=== PATIENT | female | born 1990 | race Caucasian/White ===

== ENCOUNTER → 2020-07-10 | Outpatient (CLI) | payer OTHER ==
[~2020-07-10] MED LIST: ASPIRIN CHEWABL81 MG PO; BENADRYL25 MG PO; LEVAQUIN750 MG PO; MEDROL4 MG PO; MOBIC15 MG PO; ZANTAC150 MG PO
== END ==
LOC: EMI 06-03 14:00
DX: G44.89 Other headache syndrome (principal); H53.9 Unspecified visual disturbance; R20.2 Paresthesia of skin; R25.1 Tremor, unspecified
CPT/HCPCS: 70553; A9577

== ENCOUNTER → 2020-07-10 | Outpatient (CLI) | payer OTHER | LOC: KOH-I 09:30 | DX: R10.11 Right upper quadrant pain (principal); R10.13 Epigastric pain; R11.2 Nausea with vomiting, unspecified | CPT/HCPCS: 76705 ==

== ENCOUNTER → 2020-07-31 | Outpatient (CLI) | payer OTHER | LOC: NM 07-15 09:00 | DX: R10.11 Right upper quadrant pain (principal); R11.2 Nausea with vomiting, unspecified; R93.2 Abnormal findings on diagnostic imaging of liver and biliary tract | CPT/HCPCS: 78227; A9537; J2805 ==

== ENCOUNTER → 2020-10-23 | Outpatient (CLI) | payer OTHER ==
[2020-10-25 07:10] LABS: TRYPTASE 4.6 ug/L (2.2-13.2)
== END ==
LOC: LAB 11:24
PROVIDERS: Internal Medicine
DX: R10.9 Unspecified abdominal pain (principal); G89.29 Other chronic pain; R63.4 Abnormal weight loss; N80.9 Endometriosis, unspecified; D89.89 Other specified disorders involving the immune mechanism, not elsewhere classified; M25.50 Pain in unspecified joint; R76.8 Other specified abnormal immunological findings in serum; R53.83 Other fatigue
CPT/HCPCS: 36415; 83520; 84311

== ENCOUNTER 2020-12-20 08:31 | Emergency (ER) | payer OTHER ==
[~2020-12-20 08:31] MED LIST changes: -ASPIRIN CHEWABL81 MG PO
[2020-12-20 09:11] LABS: HEMOGLOBIN 13.2 gm/dl (12.3-15.3); RED BLOOD COUNT 4.23 M/UL (4.00-5.10); WHITE BLOOD COUNT 5.5 K/UL (4.5-11.0)
[2020-12-20 09:41] LABS: BUN/CREATININE RATIO 24 (0-10)
[2020-12-20] MEDS ORDERED: ASPIRIN CHEWABL81 MG PO (10:58)
== END 2020-12-20 11:21 | disposition home or self-care (01) ==
LOC: ER1 08:31
PROVIDERS: Emergency Medicine
DX: M79.651 Pain in right thigh (principal); R07.89 Other chest pain; R06.02 Shortness of breath
CPT/HCPCS: 71045; 80053; 82550; 82553; 83874; 84439; 84443; 84484; 84703; 85025; 85379; 93005; 99285; J7040

== ENCOUNTER 2020-12-22 05:06 | Emergency (ER) | payer OTHER ==
[~2020-12-22 05:06] MED LIST changes: +ASPIRIN CHEWABL81 MG PO
== END 2020-12-22 07:03 | disposition home or self-care (01) ==
LOC: ER1 05:06
DX: M54.6 Pain in thoracic spine (principal); Z88.0 Allergy status to penicillin; Z88.2 Allergy status to sulfonamides
CPT/HCPCS: 99283

== ENCOUNTER → 2021-03-13 | Outpatient (CLI) | payer OTHER ==
[2021-03-13 16:02] LABS: HEMOGLOBIN 13.1 gm/dl (12.3-15.3); RED BLOOD COUNT 4.33 M/UL (4.00-5.10); WHITE BLOOD COUNT 6.2 K/UL (4.5-11.0)
[2021-03-13 16:20] LABS: BUN/CREATININE RATIO 20 (0-10)
== END ==
LOC: LAB 15:32
PROVIDERS: Nurse Practitioner Family
DX: Z00.00 Encounter for general adult medical examination without abnormal findings (principal); R53.83 Other fatigue; G89.29 Other chronic pain; R10.9 Unspecified abdominal pain; E53.8 Deficiency of other specified B group vitamins; E55.9 Vitamin D deficiency, unspecified; R11.0 Nausea
CPT/HCPCS: 80053; 82150; 82607; 83690; 84439; 84443; 85025

== ENCOUNTER → 2021-06-08 | Outpatient (CLI) | payer OTHER ==
[2021-06-08 16:18] LABS: BUN/CREATININE RATIO 24 (0-10)
[2021-06-09 20:09] LABS: ENDOMYSIAL ANTIBODY IGA Negative (Negative); IMMUNOGLOBULIN A, QN, SERUM 119 mg/dL (87-352); T-TRANSGLUTAMINASE (TTG) IGA <2 U/mL (0-3); T-TRANSGLUTAMINASE (TTG) IGG <2 U/mL (0-5)
== END ==
LOC: LAB 15:14
PROVIDERS: Internal Medicine
DX: M06.09 Rheumatoid arthritis without rheumatoid factor, multiple sites (principal); M25.50 Pain in unspecified joint; R10.9 Unspecified abdominal pain
CPT/HCPCS: 36415; 80053; 82728; 82784; 85652; 86140

== ENCOUNTER → 2021-07-22 | Outpatient (CLI) | payer OTHER ==
[~2021-07-22] MED LIST changes: +CEFUROXIME500 MG PO
[2021-07-22 20:51] LABS: HEMOGLOBIN 12.2 gm/dl (12.3-15.3); RED BLOOD COUNT 3.97 M/UL (4.00-5.10); WHITE BLOOD COUNT 5.9 K/UL (4.5-11.0)
[2021-07-22 21:27] LABS: BUN/CREATININE RATIO 18 (0-10)
== END ==
LOC: LAB 19:07
PROVIDERS: Nurse Practitioner Family
DX: R53.83 Other fatigue (principal); E53.8 Deficiency of other specified B group vitamins; E55.9 Vitamin D deficiency, unspecified; N92.0 Excessive and frequent menstruation with regular cycle
CPT/HCPCS: 80053; 82607; 82728; 85025

== ENCOUNTER 2021-07-24 04:14 | Emergency (ER) | payer OTHER ==
[~2021-07-24 04:14] MED LIST changes: -CEFUROXIME500 MG PO
[2021-07-24 04:48] LABS: HEMOGLOBIN 13.8 gm/dl (12.3-15.3)
[2021-07-24 05:03] LABS: BUN/CREATININE RATIO 18 (0-10)
[2021-07-24 05:10] LABS: RED BLOOD COUNT 4.48 M/UL (4.00-5.10); WHITE BLOOD COUNT 8.7 K/UL (4.5-11.0)
[2021-07-24] MEDS ORDERED: CEFUROXIME500 MG PO (06:54)
== END 2021-07-24 10:28 | disposition home or self-care (01) ==
LOC: ER1 04:14
PROVIDERS: Preventive Medicine Occupational Medicine
DX: N39.0 Urinary tract infection, site not specified (principal); K59.00 Constipation, unspecified; Z20.822 Contact with and (suspected) exposure to COVID-19
CPT/HCPCS: 80053; 81001; 84703; 85025; 86140; 87086; 96374; 96375; 96376; 99284; J0696; J2405; Q9967; U0002